=== PATIENT | female | born 1970 ===

== ENCOUNTER 2022-01-08 07:23 | Day surgery (SDC) | payer OTHER ==
[~2022-01-08] VITALS: Ht 162.6 cm; Wt 65.8 kg
[~2022-01-08 07:23] MED LIST: D3 + K2 DOTS 11 EACH PO; FOLIC ACID20 MG PO; HYDRODIURIL12.5 MG PO; LEVOXYL88 MCG PO; LIPITOR20 MG PO; ZESTRIL2.5 MG PO
[2022-01-08] MEDS ORDERED: OPTIMAL D31250 MCG (11:14)
[2022-01-08] MEDS ORDERED: FOLIC ACID1 MG (11:14)
== END 2022-01-08 18:20 | disposition home or self-care (01) ==
LOC: CIR.AMB 07:23 → O/R 07:23 → SURG 07:23 → EDSTATUS 07:45 → SURG 12:15 → O/R 18:20 → CIR.AMB 18:20
PROVIDERS: ATTEND Specialist
DX: N89.1 Moderate vaginal dysplasia (principal); Z20.822 Contact with and (suspected) exposure to COVID-19; Z88.6 Allergy status to analgesic agent; I10 Essential (primary) hypertension; E78.5 Hyperlipidemia, unspecified